=== PATIENT | male | born 1945 | race Caucasian/White ===

== ENCOUNTER 2023-05-30 17:04 | Inpatient (IN) | payer MEDICARE, OTHER ==
[~2023-05-30 17:04] MED LIST: Iopamidol 300 61% 100 ML VIAL FS ONE
[2023-05-30] MEDS ORDERED: Dicyclomine 20 MG TAB ONE (18:04)
[2023-05-30 18:23] LABS: Bilirubin 1+ (Negative); Blood, Urine 25 (Negative); Clarity Clear (Clear); Glucose, Urine (Dipstick) Normal (Negative); Ketone, Urine 50 mg/dL (Negative); Leukocyte Negative (Negative); Nitrite Negative (Negative); Protein, Urine (Dipstick) 30 mg/dl (Neg-Trace); Specific Gravity, Urine 1.015 (1.005-1.030)
[2023-05-30 18:31] LABS: Bacteria/HPF Rare-Few HPF (None Seen); CAUTI Indications for Culture Pelvic or flank pain; RBC/HPF 0-3 HPF (0-3); Squamous Epithelial 0-3 HPF (0-3); Urine Culture Reflex No No; WBC/HPF 0-3 HPF (0-3)
[2023-05-30 19:02] LABS: ALT (SGPT) 117 U/L (8-55); AST (SGOT) 83 U/L (5-34); Albumin 3.6 g/dL (3.4-4.8); Alkaline Phosphatase 73 U/L (40-110); Anion Gap 12 mmol/L (10-20); BUN (Urea Nitrogen) 8 mg/dL (8.4-25.7); Calc. Creatinine Clearance 0 mL/min (70-130); Calcium 8.1 mg/dL (7.8-10.44); Carbon Dioxide 21 mmol/L (23-31); Chloride 97 mmol/L (98-107); Estimated GFR 97; Globulin 2.7 g/dL (2.4-3.5); Glucose 112 mg/dL (83-110); Lipase 30 U/L (8-78); Magnesium 1.5 mg/dL (1.6-2.6); Potassium 3.8 mmol/L (3.5-5.1); Protein, Total 6.3 g/dL (5.8-8.1); Sodium 126 mmol/L (136-145)
[2023-05-30 19:08] LABS: Hemoglobin 11.4 g/dL (13.5-17.5); Mean Corpuscular HGB CONC 35.6 g/dL (32.0-36.0); Mean Corpuscular Hemoglobin 33.3 pg (27.0-33.0); Mean Corpuscular Volume 93.6 fl (81.2-95.1); Mean Platelet Volume 10.2 fl (7.4-10.4); Platelet Count 154 10x3/uL (150-450); RBC Distribution Width 12.8 % (11.5-14.5); Red Blood Cell (RBC) Count 3.42 10x6/uL (4.32-5.72); White Blood Cell (WBC) Count 3.5 10x3/uL (3.5-10.5)
[2023-05-30 19:09] LABS: MDiff Complete? YES
[2023-05-30] MEDS ORDERED: Ondansetron PF 4 MG/2 ML Vial ONE (19:55)
[2023-05-30 20:31] LABS: Band 1 % (5-11)
[2023-05-30 20:33] LABS: Neutrophil 78 % (42-75)
[2023-05-30 20:34] LABS: Lymphocytes 14 % (21-51); Monocytes 7 % (0-10)
[2023-05-30 20:36] LABS: Platelet Adequacy Comment Appears Adequate; RBC Morph Comment Within Normal Limits
[2023-05-30] MEDS ORDERED: Calcium Carbonate 500 MG ChewTAB PO PRN (23:38)
[2023-05-30] MEDS ORDERED: Ondansetron PF 4 MG/2 ML Vial IVP PRN (23:38)
[2023-05-30] MEDS ORDERED: Acetaminophen 325 MG TAB PO PRN (23:38)
[2023-05-30] MEDS ORDERED: Sodium Chloride 0.9% 500 ML IV SCH (23:45)
[2023-05-31] MEDS ORDERED: Sodium Bicarbonate Tab 325 MG TAB PO SCH (00:30)
[2023-05-31] MEDS ORDERED: Magnesium 2 GM/50 ML(in water) 2 GM in Premix Bag 1 BAG IVPB SCH (00:30)
[2023-05-31] MEDS ORDERED: LevoFLOXacin 750 mg/D5W 750 MG in Premix Bag 1 BAG IVPB SCH ×2 (01:00→04:30)
[2023-05-31 01:27] VITALS: BMI 28.1
[2023-05-31] MEDS: metroNIDAZOLE 500 MG in Premix Bag 1 BAG IVPB SCH ×2 (02:53→09:08)
[2023-05-31 04:18] LABS: #Monocytes 0.2 10x3/uL (0.0-1.1); #Neutrophils 2.4 10x3/uL (1.5-8.4); %Basophils 0.3 % (0.0-2.0); %Lymphocytes 12.7 % (18.0-47.0); %Monocytes 7.4 % (0.0-10.0); %Neutrophils 78.9 % (40.0-75.0); Mean Corpuscular HGB CONC 35.7 g/dL (32.0-36.0); Mean Corpuscular Hemoglobin 33.2 pg (27.0-33.0); Mean Platelet Volume 10.5 fl (7.4-10.4); Platelet Count 123 10x3/uL (150-450); RBC Distribution Width 12.6 % (11.5-14.5); Red Blood Cell (RBC) Count 3.01 10x6/uL (4.32-5.72)
[2023-05-31 04:36] LABS: ALT (SGPT) 96 U/L (8-55); AST (SGOT) 63 U/L (5-34); Albumin 3.2 g/dL (3.4-4.8); Alkaline Phosphatase 60 U/L (40-110); Anion Gap 11 mmol/L (10-20); BUN (Urea Nitrogen) 8 mg/dL (8.4-25.7); Bilirubin, Total 2.1 mg/dL (0.2-1.2); Calc. Creatinine Clearance 122 mL/min (70-130); Calcium 7.8 mg/dL (7.8-10.44); Carbon Dioxide 21 mmol/L (23-31); Chloride 100 mmol/L (98-107); Estimated GFR 100; Globulin 2.2 g/dL (2.4-3.5); Glucose 161 mg/dL (83-110); Potassium 3.6 mmol/L (3.5-5.1); Protein, Total 5.4 g/dL (5.8-8.1); Sodium 128 mmol/L (136-145)
[2023-05-31] MEDS ORDERED: Levothyroxine Sodium 100 MCG TAB PO SCH (06:00)
[2023-05-31 07:07] LABS: SARS-CoV-2 NAA Rapid Test Not Detected (NotDetected)
[2023-05-31] MEDS ORDERED: Folic Acid 1 MG TAB PO SCH (09:00)
[2023-05-31] MEDS ORDERED: Multivitamin W/ Minerals 1 TAB PO SCH (09:00)
[2023-05-31] MEDS ORDERED: Propranolol 10 MG TAB PO SCH (09:00)
[2023-05-31] MEDS ORDERED: Amlodipine 5 MG TAB PO SCH (09:00)
[2023-05-31] MEDS ORDERED: ALFUZOSIN 10 MG PO SCH (09:00)
[2023-05-31] MEDS ORDERED: Famotidine 20 MG TAB PO SCH (09:00)
[2023-05-31] MEDS ORDERED: Thiamine 100 MG TAB PO SCH (09:00)
[2023-05-31] MEDS ORDERED: Oxybutynin ER 5 MG TAB PO SCH (09:00)
[2023-05-31] MEDS ORDERED: Sodium Chloride 1 GM TAB PO SCH (09:00)
[2023-05-31] MEDS ORDERED: methylPREDNISolone Sod Succ/PF 125 MG/2 ML VIAL IVP SCH (11:30)
[2023-05-31 12:46] VITALS: BP 119/68; TEMP 97.1
[2023-06-01 01:39] LABS: Campy jejuni + coli by PCR Negative (Negative); STEC Shiga Toxin 1+2 Negative (Negative); Salmonella spp. by PCR Negative (Negative); Shigella spp + EIEC by PCR Negative (Negative)
[2023-06-01] MEDS ORDERED: Levothyroxine Sodium 50 MCG TAB PO SCH (06:00)
== END 2023-05-31 15:00 | disposition home or self-care (01) | DRG 392 ==
LOC: CSHERS 17:04 → CSHTELE 23:38 → OBSVTOIN 23:39 → CSHTELE 05-31 00:21 → UNDOADMOB 05-31 00:21 → INTOOBSV 05-31 00:22 → OBSVTOIN 05-31 00:22
PROVIDERS: ADMIT Student in an Organized Health Care Education/Training Program; ATTEND Internal Medicine
DX: K52.9 Noninfective gastroenteritis and colitis, unspecified (principal); E87.1 Hypo-osmolality and hyponatremia; C22.8 Malignant neoplasm of liver, primary, unspecified as to type; E86.0 Dehydration; E83.42 Hypomagnesemia; I10 Essential (primary) hypertension; K21.9 Gastro-esophageal reflux disease without esophagitis; Z88.5 Allergy status to narcotic agent; Z79.82 Long term (current) use of aspirin; Z79.899 Other long term (current) drug therapy; Z98.890 Other specified postprocedural states; Z80.0 Family history of malignant neoplasm of digestive organs; Z20.822 Contact with and (suspected) exposure to COVID-19
CPT/HCPCS: 36415; 74177; 80053; 81001; 83605; 83630; 83690; 83735; 84439; 84443; 85025; 86140; 87324; 87449; 87505; 93005; 96361; 96374; J1650; J1956; J2405; J2930; J3475; J7030; Q9967